=== PATIENT | male | born 1970 | race Caucasian/White ===

== ENCOUNTER 2020-07-11 19:46 | Emergency (ER) | payer SELFPAY ==
[2020-07-11] MEDS ORDERED: CASIRIVIMAB (REGN10933) 1,200 MG, IMDEVIMAB (REGN10987) 1,200 MG in SODIUM CHLORIDE 230 ML IVPB ONE (19:51)
[2020-07-11 19:59] VITALS: BMI 34.9
[2020-07-11 20:33] LABS: HEMATOCRIT 38.9 % (35.4-49); HEMOGLOBIN 13.3 GM/dL (11.7-16.9); MCH 29.3 pg (25.7-33.7); MCHC 34.3 g/dl (32.0-35.9); MEAN CELL VOLUME 85.6 fl (80-96); MEAN PLT VOLUME 10.6 fl (7.5-11.1); PLATELET COUNT 125 K/MM3 (134-434); RBC 4.54 M/mm3 (4.00-5.60); RDW 13.1 % (11.9-15.9); WHITE BLOOD COUNT 5.6 K/mm3 (4.0-10.0)
[2020-07-11 20:50] LABS: POTASSIUM 3.6 mmol/L (3.5-5.1)
[2020-07-11 20:52] LABS: BLOOD UREA NITROGEN 18.9 mg/dL (7-18); CALCIUM 7.9 mg/dL (8.5-10.1)
[2020-07-11 20:56] LABS: CREATININE 0.7 mg/dL (0.55-1.3)
[2020-07-11 22:09] VITALS: BP 128/83; PULSE 94; TEMP 100.3
== END 2020-07-11 22:37 | disposition home or self-care (01) ==
LOC: JER 19:46
DX: U07.1 COVID-19 (principal)
CPT/HCPCS: 36415; 80048; 85027; 99284-25; M0243; Q0243